=== PATIENT | male | born 1975 | race Caucasian/White ===

== ENCOUNTER 2020-06-11 05:16 | Outpatient (CLI) | payer MEDICARE, SELFPAY ==
[2020-06-11 12:02] LABS: Hemoglobin A1C 4.8 % (<5.7)
[2020-06-11 12:40] LABS: Calculated LDL 78 mg/dL (<100); Cholesterol 143 mg/dL (<200); HDL Cholesterol 56 mg/dL (40-60); Triglyceride 46 mg/dL (<150)
[2020-06-11 17:43] LABS: PSA, Screening 0.8 ng/mL (0.0-2.5)
== END 2020-06-11 05:36 ==
PROVIDERS: PCP Nurse Practitioner Family; Visit Provider Nurse Practitioner Family
DX: R73.01 Impaired fasting glucose (principal); N40.0 Benign prostatic hyperplasia without lower urinary tract symptoms; G45.9 Transient cerebral ischemic attack, unspecified; Z12.5 Encounter for screening for malignant neoplasm of prostate
CPT/HCPCS: 36415; 80061; 84153; 83036

== ENCOUNTER → 2020-06-23 11:20 | Outpatient (BNVA) | payer MEDICARE, SELFPAY | PROVIDERS: PCP Nurse Practitioner Family; Referring Provider Nurse Practitioner Family; Visit Provider Surgery | DX: K59.04 Chronic idiopathic constipation (principal) | CPT/HCPCS: 99202 ==

== ENCOUNTER 2020-07-17 01:33 | Outpatient (CLI) | payer MEDICARE, SELFPAY ==
[2020-07-18 16:41] LABS: COVID-19 RT-PCR UVMMC Result Negative (Negative)
== END 2020-07-17 01:53 ==
PROVIDERS: PCP Nurse Practitioner Family; Visit Provider Surgery
DX: Z11.52 Encounter for screening for COVID-19 (principal); Z01.818 Encounter for other preprocedural examination
CPT/HCPCS: U0003

== ENCOUNTER 2020-07-22 09:23 | Day surgery (SDC) | payer MEDICARE, SELFPAY ==
--- NOTE | 2020-07-22 06:55 | W.COLOREPORT ---
Date of service: 07/22/20 Time of Service: 10:36 Colonoscopy Report Date of procedure: 07/22/20 Pre-op diagnosis general: Constipation Post-op diagnosis procedure note: same Procedure: Colonoscopy Surgeon: Addie Dowling Anesthesia proc note operative: other (General/ASA 2/Henny Soria, [employer]) Estimated blood loss (mL): 0 Pathology: none sent Complications: None Disposition: same day Indications: Mr. oNrris is a pleasant 44-year-old gentleman who has been suffering from constipation for 1-1/2 years. He at this point has to take a laxative tea once to twice a week as well as an enema once a week in order to be able to go to the bathroom. He has abdominal discomfort and bloating as well as some shortness of breath. All of the symptoms resolve as soon as he has a bowel movement. Differential for constipation is quite extensive. This could be due to neurologic issues which he does not have diabetes or other neuropathies. Other causes would be hypothyroidism. I have not seen that he has not had any labs drawn for this Other other reasons for constipation would include slow transit including irritable bowel syndrome constipation type. He has no family history of colon or rectal cancer that he is aware of. His exam is normal today. Discussed colonoscopy to rule out any obstruction. As he has had no labs drawn to look for hypothyroidism I will have those drawn when he comes in for his colonoscopy. We discussed the colonoscopy procedure in detail as well as the prep. We also reviewed Covid testing and quarantine requirements. I have asked him to decrease his caffeine intake and increase his water intake until he has his colonoscopy. Risks, benefits and complications have been reviewed. Complications include but are not limited to bleeding, pain, perforation, missed small lesion/polyp, sore throat, aspiration and adverse reaction to the medications. Questions were entertained and answered to their satisfaction and they wished to proceed. No guarantees were given or implied. COVID-19 testing explained to the patient. Reason for test reviewed. Quarantine per state requirements reviewed with patient. Patient understands and agrees to testing. Prep: Miralax/Dulcolax Procedure Start Time: 10:36 Procedure End Time: 11:06 Retraction Time: 15 minutes Findings: Normal colon Procedure Description: After informed consent was obtained the patient was taken to the procedure room and placed in a left decubitous position. Monitors were applied and a time out was done. The patients name, date of , procedure, allergies to medications and metal in their body was reviewed. The patient was then sedated. Once sedated and comfortable a rectal exam was done. External exam was normal. Internal exam revealed a normal sphincter tone and no palpable masses. The prostate felt smooth and enlarged. The scope was then introduced and retro-flexed. No internal hemorrhoids, polyps or masses were identified on retro-flexion. The scope was then advanced to the cecum without difficulty. The ileocecal valve and appendiceal orifice were identified. The prep was adequate. The scope was then slowly retracted over 15 minutes back into the rectum. There were no polyps. There was no diverticulosis noted. The scope was removed and the patient was woken up and taken back to Same day surgery in stable condition. The patient tolerated the procedure well and there were no immediate complications. Follow up: The patient should follow up in 10 years unless they develop changes in bowel habits or other new gastrointestinal complaints.
--- NOTE | 2020-07-22 06:55 | W.PM.DSUDISC ---
Discharge Plan Disposition Patient Disposition: HOME Condition: Good Discharge Details Reason For Visit: Colonoscopy Attending Provider: Addie Dowling Primary Care Provider: Balta Miller Home Meds and New Rx's Prescriptions: Continued aspirin 325 mg tablet 325 mg PO DAILY RF: 0 magnesium Tablet 325 tab PO DAILY RF: 0 vitamin B complex [Super B-50 Complex] Capsule 1 cap PO DAILY RF: 0 zinc 50 mg tablet 50 mg PO DAILY RF: 0 cholecalciferol (vitamin D3) 125 mcg (5,000 unit) capsule 125 mcg PO DAILY RF: 0 ascorbic acid (vitamin C) 1,000 mg tablet 1 g PO Q6H RF: 0 digestive enzymes Tablet 1 tab PO DAILY RF: 0 omega-3 fatty acids Capsule 1,250 mg PO DAILY RF: 0 Adult Probiotic 3 billion cell capsule 3,000 mmu cells PO DAILY RF: 0 acetaminophen [Tylenol Extra Strength] 500 mg tablet 500 mg PO Q6H PRNRF: 0 cannabidiol 100 mg/mL solution 1,000 mg PO TID RF: 0 coenzyme Q10 [CoQ-10] 100 mg capsule 100 mg PO DAILY RF: 0 Discontinued bisacodyl [Dulcolax (bisacodyl)] 5 mg tablet,delayed release (DR/EC) 5 mg PO ONCE Qty: 4 RF: 0 polyethylene glycol 3350 17 gram powder in packet 255 g PO DAILY Qty: 15 RF: 0 Discharge Instructions Instructions: Constipation (GEN) Additional Instructions: Findings: Normal colon Follow up: 10 years For the constipation: Try taking a stool softener daily. Example Miralax 17 Gm daily or Colace 1 tab 2 x a day. If no improvement with this then let me know. Please call if you develop: fevers >101.5 Nausea or Vomiting Abdominal pain that is not transient DAY SURGERY UNIT POST ENDOSCOPY INSTRUCTIONS 1. Because there will be medication in your system for the next 24 hours, you may feel a little sleepy. Your coordination will be affected. Therefore: a. Do not drive or operate dangerous equipment for 24 hours. b. Do not drink alcohol beverages for 24 hours (not even beer). c. Plan to go home and rest for the day. 2. Generally there are no restrictions on your activity after a day or so has gone by, but you may feel a bit fatigued for a few days. 3 After you arrive home you may have a light meal and return to a normal diet as you can tolerate it without feeling sick to your stomach. 4. After surgery, you may feel pain or discomfort. This should be only transient, but if it persists please contact your doctor. 5. If there are any questions regarding the findings of your procedure, please feel free to contact your doctor. 6. If you are unable to contact your doctor with a problem, contact the hospital at [phone]. 7. Continue all your regular medications unless directed otherwise. I understand the above instructions and have no questions. Signature of Patient or Responsible Adult Escort Date/Time Name of Responsible Adult Escort Signature of Nurse Date/Time Activity:: Activity as Tolerated Diet:: High Fiber Discharge Orders Discharge Orders: Discharge Order (Routine); Ordered 07/22/20 Ordered By: Addie Dowling
[2020-07-22 09:51] VITALS: BP 140/80; PULSE 52; RESP 16; TEMP 36.5; O2SAT 100
[2020-07-22] MEDS: Lactated Ringers 1,000 ML 80 ML IV (10:17)
[2020-07-22 11:25] LABS: Anion Gap 8.3 mmol/L (3-11); BUN 8 mg/dL (7-18); CO2 24.7 mmol/L (21.0-32.0); CREATININE 0.81 mg/dL (0.70-1.30); Calcium 8.7 mg/dL (8.5-10.1); Chloride 105 mmol/L (98-107); Glucose 107 mg/dL (74-106); Potassium 3.7 mmol/L (3.5-5.1); Sodium 138 mmol/L (136-145); TSH 3.73 uIU/mL (0.36-3.74)
[2020-07-22 11:44] VITALS: BP 124/69; PULSE 48; RESP 16; TEMP 36.5; O2SAT 100
[2020-07-22 13:36] LABS: T4 9.1 ug/mL (4.7-13.3)
== END 2020-07-22 12:02 | disposition home or self-care (01) ==
LOC: SUR 09:23
PROVIDERS: PCP Nurse Practitioner Family; Visit Provider Surgery
PROC: 0DJD8ZZ Inspection of Lower Intestinal Tract, Via Natural or Artificial Opening Endoscopic (ICD-10-PCS; CPT 45378; principal; 2020-07-22 11:00)
DX: K59.00 Constipation, unspecified (principal); E03.9 Hypothyroidism, unspecified
CPT/HCPCS: 45378; 80048; 84436; 84443; J2001; J2704

== ENCOUNTER 2020-07-27 09:40 | Outpatient (CLI) | payer MEDICARE, SELFPAY ==
[2020-07-28 14:37] LABS: COVID-19 RT-PCR UVMMC Result Negative (Negative)
== END 2020-07-27 10:00 ==
PROVIDERS: PCP Nurse Practitioner Family; Visit Provider Nurse Practitioner Family
DX: Z20.822 Contact with and (suspected) exposure to COVID-19 (principal)
CPT/HCPCS: U0003

== ENCOUNTER 2020-10-05 10:01 | Outpatient (CLI) | payer MEDICARE, SELFPAY ==
[2020-10-06 16:17] LABS: COVID-19 RT-PCR UVMMC Result Negative (Negative)
== END 2020-10-05 10:02 | disposition home or self-care (01) ==
PROVIDERS: PCP Nurse Practitioner Family; Visit Provider Nurse Practitioner Family
DX: Z20.822 Contact with and (suspected) exposure to COVID-19 (principal)
CPT/HCPCS: U0003; U0005

== ENCOUNTER 2020-10-19 10:23 | Outpatient (CLI) | payer MEDICARE, SELFPAY ==
[2020-10-20 18:07] LABS: COVID-19 RT-PCR UVMMC Result Negative (Negative)
== END 2020-10-19 10:24 | disposition home or self-care (01) ==
PROVIDERS: PCP Nurse Practitioner Family; Visit Provider Nurse Practitioner Family
DX: Z20.822 Contact with and (suspected) exposure to COVID-19 (principal)
CPT/HCPCS: U0003; U0005

== ENCOUNTER 2020-12-11 01:29 | Outpatient (CLI) | payer MEDICARE, SELFPAY ==
--- NOTE | 2020-12-11 07:00 | DI.CT_ITS ---
Exam(s) CT ABDOMEN PELVIS W EXAM: CT ABDOMEN PELVIS W CLINICAL HISTORY: Constipation with difficulty breathing due to abd. TECHNIQUE: Imaging Protocol: Axial computed tomography images with coronal and sagittal reformatted images were created and reviewed CONTRAST MATERIAL: Intravenous: Omnipaque 350 Contrast volume:100 mL Oral: Yes COMPARISON: No exams were available for comparison FINDINGS: ABDOMEN: Lung Bases: Normal where visualized. Liver: Normal density. No measurable mass. The liver measures 18.4 cm in length. Portal, Superior Mesenteric, and Splenic Veins: Unremarkable. Gallbladder and Biliary Tract: No radiodense calculus or dilation. Pancreas: Normal density, no abnormal calcifications or inflammatory process. Spleen: Normal. Adrenals: No masses seen. Kidneys: Normal size, contour and axis. No radiodense stones or obstructive uropathy. No masses seen. Abdominal Aorta: Abdominal portion non-dilated. Bowel: No obstruction or bowel wall thickening. Appendix is unremarkable. There is a large amount of stool throughout the colon. Peritoneal Cavity: No ascites, collection or mesenteric inflammatory response. No free air. Lymph Nodes: Within normal limits. Bones: Within normal limits for the patient's age. Soft Tissues: Unremarkable. PELVIS: Bladder: Symmetric distention, no gross wall thickening. Reproductive Organs: Unremarkable as visualized. Lymph Nodes: Within normal limits. Bones: Within normal limits for the patient's age. IMPRESSION: 1. There is a large amount of stool throughout the colon. Constipation. 2. No acute abdominal or pelvic process. RADIATION DOSE DELIVERED: 823.78mGy.cm Total DLP DATA REPOSITORY: All CT scans at this facility are submitted to the National Radiology Data Registry (NRDR) Dose Index Registry (DIR) with the [employer] [place] ([employer]). RADIATION OPTIMIZATION: All CT scans at this facility use at least one of these dose optimization te chniques: automated exposure control; mA and/or kV adjustment per patient size (includes targeted exa ms where dose is matched to clinical indication); or iterative reconstruction.
[2020-12-11] MEDS: Breeza Beverage 473 ML BTL PO (08:33)
[2020-12-11] MEDS: Omnipaque 350 MG/ML 50 ML BTL PO (08:33)
[2020-12-11] MEDS: Omnipaque 350 MG/ML 100 ML BTL IV (10:05)
[2020-12-11] MEDS: Normal Saline - Diluent 50 ML VIAL IV (10:07)
[2020-12-11] MEDS: Normal Saline Flush 10 ML SYR IVP (10:07)
== END 2020-12-11 01:49 ==
PROVIDERS: PCP Nurse Practitioner Family; Visit Provider Nurse Practitioner Family
DX: K59.04 Chronic idiopathic constipation (principal); R06.89 Other abnormalities of breathing
CPT/HCPCS: 74177; J3490; Q9967

== ENCOUNTER 2021-01-20 01:48 | Outpatient (CLI) | payer OTHER, SELFPAY ==
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
== END 2021-01-20 02:08 ==
PROVIDERS: PCP Nurse Practitioner Family; Visit Provider Nurse Practitioner Family
DX: M79.631 Pain in right forearm (principal); V89.2XXA Person injured in unspecified motor-vehicle accident, traffic, initial encounter
CPT/HCPCS: 73090

== ENCOUNTER → 2021-02-02 13:29 | Outpatient (BNVA) | payer MEDICARE, SELFPAY | PROVIDERS: PCP Nurse Practitioner Family; Referring Provider Nurse Practitioner Family; Visit Provider Student in an Organized Health Care Education/Training Program | DX: S56.911A Strain of unspecified muscles, fascia and tendons at forearm level, right arm, initial encounter (principal); M67.431 Ganglion, right wrist; V89.2XXA Person injured in unspecified motor-vehicle accident, traffic, initial encounter | CPT/HCPCS: 99203; 99213 ==

== ENCOUNTER 2021-09-28 18:21 | Outpatient (REF) | payer MEDICARE, SELFPAY ==
[2021-09-30 12:54] LABS: COVID-19 RT-PCR UVMMC Result Negative (Negative)
== END 2021-09-28 18:22 | disposition home or self-care (01) ==
LOC: LBN 18:21
PROVIDERS: PCP Nurse Practitioner Family; Visit Provider Family Medicine
DX: Z20.822 Contact with and (suspected) exposure to COVID-19 (principal); R68.89 Other general symptoms and signs
CPT/HCPCS: U0003

== ENCOUNTER 2022-12-28 09:02 | Outpatient (CLI) | payer MEDICARE, SELFPAY ==
[2022-12-28 11:07] LABS: ALT 40 U/L (16-63); AST 33 U/L (15-37); Alkaline Phosphatase 84 U/L (46-116); Anion Gap 8.9 mmol/L (3-11); BUN 11 mg/dL (7-18); Bilirubin, Total 1.1 mg/dL (0.2-1.0); CO2 28.1 mmol/L (21.0-32.0); Calcium 9.4 mg/dL (8.5-10.1); Chloride 105 mmol/L (98-107); Glucose 95 mg/dL (74-106); Potassium 4.1 mmol/L (3.5-5.1); Sodium 142 mmol/L (136-145)
[2022-12-29 12:14] LABS: Hepatitis A Antibody IgM Negative (Negative); Hepatitis B Core Antibody Negative (Negative); Hepatitis B surface Ag Negative (Negative); Hepatitis C Ab w Rflx HCV PCR Negative (Negative)
== END 2022-12-28 09:03 | disposition home or self-care (01) ==
LOC: LOS 09:03
PROVIDERS: PCP Nurse Practitioner Family; Visit Provider Nurse Practitioner Family
DX: R16.0 Hepatomegaly, not elsewhere classified (principal)
CPT/HCPCS: 36415; 80053; 86704; 86709; 86803; 87340

== ENCOUNTER 2023-03-30 20:21 | Outpatient (REF) | payer MEDICARE, SELFPAY | END 2023-03-30 20:22 | disposition home or self-care (01) | LOC: LBN 20:21 | PROVIDERS: PCP Nurse Practitioner Family; Visit Provider Physician Assistant | DX: J02.9 Acute pharyngitis, unspecified (principal) | CPT/HCPCS: 87070 ==

== ENCOUNTER 2023-05-09 00:57 | Outpatient (CLI) | payer MEDICARE, SELFPAY ==
[2023-05-09 12:53] LABS: ALT 38 U/L (16-63); AST 31 U/L (15-37); Alkaline Phosphatase 73 U/L (46-116); Anion Gap 8.8 mmol/L (3-11); BUN 12 mg/dL (7-18); Bilirubin, Total 0.9 mg/dL (0.2-1.0); CO2 28.2 mmol/L (21.0-32.0); CREATININE 0.9 mg/dL (0.70-1.30); Calcium 9.5 mg/dL (8.5-10.1); Calculated LDL 137 mg/dL (<100); Chloride 102 mmol/L (98-107); Cholesterol 241 mg/dL (<200); Estimated GFR 106.67 (mL/min/1.73m2); Glucose 104 mg/dL (74-106); HDL Cholesterol 86 mg/dL (40-60); Sodium 139 mmol/L (136-145); Total Protein 7.2 g/dL (6.4-8.2); Triglyceride 90 mg/dL (<150)
== END 2023-05-09 00:58 | disposition home or self-care (01) ==
LOC: LOS 00:57
PROVIDERS: PCP Nurse Practitioner Family; Visit Provider Nurse Practitioner Family
DX: R16.0 Hepatomegaly, not elsewhere classified (principal); Z13.220 Encounter for screening for lipoid disorders
CPT/HCPCS: 36415; 80053; 80061